=== PATIENT | female | born 1980 | race Caucasian/White ===

== ENCOUNTER 2017-01-29 07:57 | Emergency (ER) | payer MEDICAID ==
[2017-01-29 08:04] VITALS: TEMP 97.9; O2SAT 100
[2017-01-29] MEDS ORDERED: Sodium Chloride 0.9% 1,000 ML IV ONE (08:13)
[2017-01-29] MEDS ORDERED: Iohexol 240 (50 ml) PO STA (08:13)
--- NOTE | 2017-01-29 08:13 | C.PDOC ---
History Of Present Illness 37 year old female with prior history of gallstones presents to the ED with recurring abdominal pain for approximately 2 weeks, pain occasionally radiates towards RUQ and mid back. Patient states the pain is worsening, and current symptoms similar to prior ones "but more intense". Patient denies fever, nausea , vomit, diarrhea, UTI symptoms. RECUR ABD PAIN X 2 WEEKS, WORSENING. HO BILIARY COLIC, CURRENT SX SIM TO PRIOR "BUT MORE INTENSE". WAX WANE LOWER ABD OCC RADIATION RUQ/MID BACK. NO FEVER, NVD. PSH GASTRIC BYPASS 2002. NO UTI SX EXAM MILD DIST NONTOXIC HEENT ANICTERIC MMM ABD +B/L LQ TEND MOD SOFT NO R/G REMAINDER NEG MDM OLD RECS +CHOLELITHIASIS 2016 Time Seen by Provider: 01/29/17 08:06 Chief Complaint (Nursing): Abdominal Pain History Per: Patient History/Exam Limitations: no limitations Onset/Duration Of Symptoms: Waxing/Waning (lower abdomen) Current Symptoms Are (Timing): Still Present Location Of Pain/Discomfort: LLQ Radiation Of Pain To:: Back (Mid) Quality Of Discomfort: Other (waxing and waning) Associated Symptoms: Back Pain (occasional). denies: Fever, Chills, Nausea, Vomiting, Diarrhea, Urinary Symptoms Recent travel outside of the [place]: No Additional History Per: Patient Past Medical History Reviewed: Historical Data, Nursing Documentation, Vital Signs Vital Signs: Last Vital Signs Temp 97.9 F 01/29/17 08:02 Pulse 65 01/29/17 10:14 Resp 16 01/29/17 10:14 BP 131/88 01/29/17 10:14 Pulse Ox 100 01/29/17 11:56 - Medical History PMH: Anemia, Anxiety, Depression, Gall Bladder Disease (STONES), Personality Disorder, Schizophrenia Denies: Diabetes, Hepatitis, HIV, HTN, Chronic Kidney Disease, Seizures, Sexually Transmitted Disease Other Surgeries: Gastric bypass 2002 - [facility] Procedures ALCOHOL DETOXIFICATION (08/03/14) GROUP PSYCHOTHERAPY (05/30/15) INDIVIDUAL PSYCHOTHERAPY, SUPPORTIVE (05/30/15) Family History: States: Unknown Family Hx - Social History Hx Tobacco Use: No Hx Alcohol Use: Yes Hx Substance Use: Yes - Immunization History Hx Tetanus Toxoid Vaccination: No Hx Influenza Vaccination: No Hx Pneumococcal Vaccination: No Review Of Systems Constitutional: Negative for: Fever, Chills Gastrointestinal: Positive for: Abdominal Pain (lower). Negative for: Nausea, Vomiting, Diarrhea Physical Exam - Physical Exam Appears: Non-toxic, In Acute Distress (Mild) Skin: Warm, Dry, Jaundice Head: Atraumatic, Normacephalic Eye(s): bilateral: Normal Inspection Ear(s): Bilateral: Normal Nose: Normal, No Discharge Oral Mucosa: Moist Throat: Normal, No Erythema, No Exudate Neck: Normal, Supple Chest: Symmetrical Cardiovascular: Rhythm Regular Respiratory: Normal Breath Sounds, No Accessory Muscle Use Gastrointestinal/Abdominal: Soft (bilateral moderate lower quadrant), Tenderness (bilateral moderate lower quadrant), No Guarding, No Rebound Back: Normal Inspection Neurological/Psych: Oriented x3, Normal Speech, Normal Cognition ED Course And Treatment - Laboratory Results Result Diagrams: 01/29/17 08:33 01/29/17 08:33 O2 Sat by Pulse Oximetry: 100 (On RA) Pulse Ox Interpretation: Normal - CT Scan/US Abdomen US Other Rad Studies (CT/US): Interpreted By Me, Read By Radiologist, Radiology Report Reviewed CT/US Interpretation: HISTORY: abd pain HO GALLSTONES. COMPARISON: None. TECHNIQUE: Sonographic evaluation of the right upper quadrant of the abdomen. FINDINGS: LIVER: Measures 16.4 cm in length. Normal echogenicity of the liver parenchyma. No mass. No intrahepatic bile duct dilatation. GALLBLADDER: Multiple gallstones are seen without ultrasound evidence of acute cholecystitis. COMMON BILE DUCT: Measures 4 mm. No stones. No dilatation. PANCREAS: Unremarkable as visualized. No mass. No ductal dilatation. RIGHT KIDNEY: Measures 11.4 x 4.5 x 4.7 cm in length. Normal echogenicity. No calculus, mass, or hydronephrosis. AORTA: No aneurysmal dilatation. IVC: Unremarkable. OTHER FINDINGS: None . IMPRESSION: Gallstones without ultrasound evidence of acute cholecystitis CT abdo/Pelvis Other Rad Studies (CT/US): Interpreted By Me, Read By Radiologist, Radiology Report Reviewed CT/US Interpretation: PROCEDURE: CT Abdomen and Pelvis with contrast. HISTORY : abd pain LQ PAIN HO GASTRIC BYPASS. COMPARISON: Comparison is made to the previous same-day ultrasound of the right upper quadrant. TECHNIQUE: Contrast dose: 100 mL Visipaque 320. Radiation dose: Total exam DLP = 929.73 mGy-cm. This CT exam was performed using one or more of the following dose reduction techniques: Automated exposure control, adjustment of the mA and/or kV according to patient size, and/or use of iterative reconstruction technique. FINDINGS: LOWER THORAX: Unremarkable. LIVER: Unremarkable. No gross lesion or ductal dilatation. GALLBLADDER AND BILE DUCTS: Gallstones are noted without evidence of cholecystitis. PANCREAS: Unremarkable. No gross lesion or ductal dilatation. SPLEEN: Unremarkable. ADRENALS: Unremarkable. No mass. KIDNEYS AND URETERS: Unremarkable. No hydronephrosis. No solid mass. VASCULATURE: Unremarkable. No aortic aneurysm. BOWEL: The patient is status post gastric bypass surgery. Mildly dilated small bowel loops and mild wall thickening at the left abdomen may represent mild enteritis. No evidence of high -grade bowel obstruction. APPENDIX: Normal appendix. PERITONEUM: Unremarkable. No free fluid. No free air. LYMPH NODES: Mildly enlarged mesenteric lymph nodes seen at the mid and lower abdomen especially around the mesenteric root likely reactive. BLADDER: Unremarkable. REPRODUCTIVE: The uterus is mildly enlarged contains soft tissue lesion likely represent fibroid. BONES: No acute fracture. OTHER FINDINGS: There is a fat containing 4 centimeter midline ventral hernia just above the level of the umbilicus. IMPRESSION: Gallstones without evidence of acute cholecystitis. Mildly dilated small bowel loops demonstrate mild wall thickening at the left mid and lower abdomen may represent enteritis. No evidence of pancreatitis or appendicitis. 4 centimeter fat containing midline anterior abdominal wall ventral hernia. Progress - Re-Evaluation Re-evaluation Note: 01/29/17 12:19 [address]ARS COM[address] ND. VSS. CT RESULTS DW/ PT. DC W ABX, FU PMD - Data Reviewed Data Reviewed: Lab, Diagnostic imaging, Old records Medical Decision Making Medical Decision Making: Impression : 37 y/o female recurring abdominal pain prior Hx of billiary colic Plan : * Blood work, UA ordered * CT abdo/pelvis with PO and IV contrast, US abdo ordered * Morphine, Omnipaque 50 ml PO, IV fluids, Zofran 8 mg IVP given. Disposition Counseled Patient/Family Regarding: Studies Performed, Diagnosis, Need For Followup, Rx Given - Disposition Referrals: YOUR,PMD [Other] Indra Mcnamara MD [Staff Provider] - Disposition: HOME/ ROUTINE Disposition Time: 12:23 Condition: IMPROVED Prescriptions: Amoxicillin/Clavulanate [Augmentin 875 MG-125 MG] 1 tab PO BID #14 tab Dicyclomine [Bentyl] 20 mg PO TID PRN #12 tab PRN Reason: Pain oxyCODONE/Acetaminophen [Percocet 5/325 mg Tab] 1 ea PO QID #8 tab Instructions: Enteritis (ED), Gallstones (ED) Forms: [facility] (Yemeni) - Clinical Impression Clinical Impression: Enteritis, Biliary colic - Scribe Statement The provider has reviewed the documentation as recorded by the Scriblee Queen All medical record entries made by the Michelleiblee were at my direction and personally dictated by me. I have reviewed the chart and agree that the record accurately reflects my personal performance of the history, physical exam, medical decision making, and the department course for this patient. I have also personally directed, reviewed, and agree with the discharge instructions and disposition.
[2017-01-29] MEDS ORDERED: Iohexol 240 (50 ml) ONE (08:24)
[2017-01-29] MEDS ORDERED: Morphine 4 MG/ML VIAL ONE (08:24)
[2017-01-29] MEDS ORDERED: Sodium Chloride 0.9% 1,000 ML ONE (08:25)
[2017-01-29 08:31] LABS: RBC URINE 3 /hpf (0-3); URINE BILIRUBIN NEGATIVE (NEGATIVE); URINE BLOOD NEGATIVE (NEGATIVE); URINE COLOR Yellow (YELLOW); URINE GLUCOSE (UA) NORMAL (Normal); URINE KETONE NEGATIVE (NEGATIVE); URINE LEUKOCYTE ESTERASE NEG Leu/uL (Negative); URINE PROTEIN NEGATIVE (NEGATIVE); URINE UROBILINOGEN NORMAL mg/dL (0.2-1.0); WBC URINE 3 /hpf (0-5)
[2017-01-29 08:44] LABS: BASO # 0.1 K/uL (0.0-0.2); BASO % 1.4 % (0.0-2.0); CHLORIDE 103 mmol/L (98-107); EOS # 0.2 K/uL (0.0-0.7); EOS % 3.7 % (0.0-4.0); HEMATOCRIT 33.1 % (34.0-47.0); LYMPH # 1.2 K/uL (1.0-4.3); LYMPH % 21.1 % (20.0-40.0); MEAN CELL VOLUME 73.6 fL (81.0-99.0); MEAN CORPUSCULAR HEMOGLOBIN 23.1 pg (27.0-31.0); MEAN CORPUSCULAR HGB CONC 31.4 g/dL (33.0-37.0); MEAN PLATELET VOLUME 10.3 fL (7.2-11.7); MONO # 0.4 K/uL (0.0-0.8); MONO % 7.6 % (0.0-10.0); NRBC % 0.1 % (0.0-2.0); RED CELL DISTRIBUTION WIDTH 19.1 % (11.5-14.5); SODIUM 135 mmol/L (132-148); WHITE BLOOD COUNT 5.7 K/uL (4.8-10.8)
[2017-01-29 08:47] LABS: ALKALINE PHOSPHATASE 72 U/L (38-126); ALT/SGPT 37 U/L (9-52); AST/SGOT 32 U/L (14-36); BLOOD UREA NITROGEN 10 mg/dL (7-17); CARBON DIOXIDE 23 mmol/L (22-30); GFR AFRICAN-AMERICAN > 60; TOTAL PROTEIN 7.7 g/dL (6.3-8.3)
[2017-01-29 08:48] LABS: CALCIUM 8.6 mg/dl (8.6-10.4); GLUCOSE,RANDOM 82 mg/dL (65-105)
[2017-01-29] MEDS ORDERED: Iodixanol 320 MG/ML 100 ML BOTTLE IV ONE (10:08)
[2017-01-29 10:15] VITALS: RESP 16
--- NOTE | 2017-01-29 10:26 | US ---
HISTORY: abd pain HO GALLSTONES COMPARISON: None. TECHNIQUE: Sonographic evaluation of the right upper quadrant of the abdomen. FINDINGS: LIVER: Measures 16.4 cm in length. Normal echogenicity of the liver parenchyma. No mass. No intrahepatic bile duct dilatation. GALLBLADDER: Multiple gallstones are seen without ultrasound evidence of acute cholecystitis COMMON BILE DUCT: Measures 4 mm. No stones. No dilatation. PANCREAS: Unremarkable as visualized. No mass. No ductal dilatation. RIGHT KIDNEY: Measures 11.4 x 4.5 x 4.7 cm in length. Normal echogenicity. No calculus, mass, or hydronephrosis. AORTA: No aneurysmal dilatation. IVC: Unremarkable. OTHER FINDINGS: None . IMPRESSION: Gallstones without ultrasound evidence of acute cholecystitis.
--- NOTE | 2017-01-29 11:49 | CT ---
PROCEDURE: CT Abdomen and Pelvis with contrast HISTORY: abd pain LQ PAIN HO GASTRIC BYPASS COMPARISON: Comparison is made to the previous same-day ultrasound of the right upper quadrant. TECHNIQUE: Contrast dose: 100 mL Visipaque 320 Radiation dose: Total exam DLP = 929.73 mGy-cm. This CT exam was performed using one or more of the following dose reduction techniques: Automated exposure control, adjustment of the mA and/or kV according to patient size, and/or use of iterative reconstruction technique. FINDINGS: LOWER THORAX: Unremarkable. LIVER: Unremarkable. No gross lesion or ductal dilatation. GALLBLADDER AND BILE DUCTS: Gallstones are noted without evidence of cholecystitis. PANCREAS: Unremarkable. No gross lesion or ductal dilatation. SPLEEN: Unremarkable. ADRENALS: Unremarkable. No mass. KIDNEYS AND URETERS: Unremarkable. No hydronephrosis. No solid mass. VASCULATURE: Unremarkable. No aortic aneurysm. BOWEL: The patient is status post gastric bypass surgery. Mildly dilated small bowel loops and mild wall thickening at the left abdomen may represent mild enteritis. No evidence of high-grade bowel obstruction. APPENDIX: Normal appendix. PERITONEUM: Unremarkable. No free fluid. No free air. LYMPH NODES: Mildly enlarged mesenteric lymph nodes seen at the mid and lower abdomen especially around the mesenteric root likely reactive. BLADDER: Unremarkable. REPRODUCTIVE: The uterus is mildly enlarged contains soft tissue lesion likely represent fibroid. BONES: No acute fracture. OTHER FINDINGS: There is a fat containing 4 centimeter midline ventral hernia just above the level of the umbilicus. IMPRESSION: Gallstones without evidence of acute cholecystitis. Mildly dilated small bowel loops demonstrate mild wall thickening at the left mid and lower abdomen may represent enteritis. No evidence of pancreatitis or appendicitis. 4 centimeter fat containing midline anterior abdominal wall ventral hernia.
[2017-01-29 12:38] VITALS: BP 119/81; PULSE 80
== END 2017-01-29 12:39 | disposition home or self-care (01) ==
LOC: C.ER 07:57
DX: K52.9 Noninfective gastroenteritis and colitis, unspecified (principal); K80.50 Calculus of bile duct without cholangitis or cholecystitis without obstruction
CPT/HCPCS: 74177; 76705; 80053; 81001; 83690; 84703; 85025; 96361; 96374; 96375; 99285; J2270; J2405; J7040; Q9966; Q9967

== ENCOUNTER 2017-06-26 08:54 | Emergency (ER) | payer MEDICAID ==
[2017-06-26 09:48] LABS: BASO # 0.1 K/uL (0.0-0.2); BASO % 1.8 % (0.0-2.0); EOS # 0.2 K/uL (0.0-0.7); EOS % 3.7 % (0.0-4.0); HEMOGLOBIN 10.3 g/dL (11.0-16.0); LYMPH # 1.4 K/uL (1.0-4.3); LYMPH % 25.1 % (20.0-40.0); MEAN CORPUSCULAR HEMOGLOBIN 23.6 pg (27.0-31.0); MEAN CORPUSCULAR HGB CONC 32.3 g/dL (33.0-37.0); MEAN PLATELET VOLUME 10.8 fL (7.2-11.7); MONO # 0.5 K/uL (0.0-0.8); MONO % 8.6 % (0.0-10.0); NEUT # 3.3 K/uL (1.8-7.0); NEUT % 60.8 % (50.0-75.0); RBC 4.38 Mil/uL (3.80-5.20); RED CELL DISTRIBUTION WIDTH 18.4 % (11.5-14.5); WHITE BLOOD COUNT 5.5 K/uL (4.8-10.8)
[2017-06-26 09:53] LABS: HCG,QUALITATIVE URINE NEGATIVE (NEGATIVE); SQUAMOUS EPITHIAL 3 /hpf (0-5); URINE BILIRUBIN NEGATIVE (NEGATIVE); URINE BLOOD NEGATIVE (NEGATIVE); URINE CLARITY Hazy (Clear); URINE COLOR Yellow (YELLOW); URINE GLUCOSE (UA) NORMAL (Normal); URINE LEUKOCYTE ESTERASE NEG Leu/uL (Negative); URINE PROTEIN NEGATIVE (NEGATIVE)
[2017-06-26 10:09] LABS: ALB/GLOB RATIO 1.2 (1.0-2.1); ALBUMIN 4.1 g/dL (3.5-5.0); ALT/SGPT 20 U/L (9-52); AST/SGOT 25 U/L (14-36); BLOOD UREA NITROGEN 8 mg/dL (7-17); CALCIUM 8.6 mg/dl (8.6-10.4); GFR AFRICAN-AMERICAN > 60; GFR NON-AFRICAN AMERICAN > 60; LIPASE 172 U/L (23-300)
[2017-06-26 10:19] LABS: BARBITURATES, UR NEGATIVE (NEGATIVE); BENZODIAZEPINES, UR NEGATIVE (NEGATIVE); OPIATES, UR NEGATIVE (NEGATIVE); PHENCYCLIDINE, UR NEGATIVE (NEGATIVE)
--- NOTE | 2017-06-26 10:37 | C.PDOC ---
Time Seen by Provider: 06/26/17 09:20 Chief Complaint (Nursing): Abdominal Pain History Per: Patient Onset/Duration Of Symptoms: Days (months), Waxing/Waning Severity: Moderate Location Of Pain/Discomfort: Periumbilical Quality Of Discomfort: Unable To Describe, "Pain" Associated Symptoms: Constipation (?) Exacerbating Factors: Upright Position Additional History Per: Prior Records Past Medical History Reviewed: Historical Data, Nursing Documentation, Vital Signs Vital Signs: Last Vital Signs Temp 97.7 F 06/26/17 08:58 Pulse 75 06/26/17 08:58 Resp 18 06/26/17 08:58 BP 114/77 06/26/17 08:58 Pulse Ox 99 06/26/17 08:58 - Medical History PMH: Anemia, Anxiety, Depression, Gall Bladder Disease (STONES), Personality Disorder, Schizophrenia Surgical History: Cholecystectomy - [facility] Procedures ALCOHOL DETOXIFICATION (08/03/14) GROUP PSYCHOTHERAPY (05/30/15) INDIVIDUAL PSYCHOTHERAPY, SUPPORTIVE (05/30/15) Family History: States: Unknown Family Hx - Social History Hx Tobacco Use: No Hx Alcohol Use: No Hx Substance Use: No - Immunization History Hx Tetanus Toxoid Vaccination: No Hx Influenza Vaccination: No Hx Pneumococcal Vaccination: No Review Of Systems Except As Marked, All Systems Reviewed And Found Negative. Constitutional: Negative for: Fever, Weakness Cardiovascular: Negative for: Chest Pain Respiratory: Negative for: Shortness of Breath Gastrointestinal: Positive for: Constipation. Negative for: Vomiting, Diarrhea , Melena, Hematochezia, Hematemesis Genitourinary: Negative for: Dysuria, Vaginal Bleeding Musculoskeletal: Negative for: Neck Pain, Back Pain Skin: Negative for: Rash Neurological: Negative for: Weakness, Numbness Physical Exam - Physical Exam Appears: Non-toxic, No Acute Distress Skin: Normal Color, Warm, Dry, No Rash Head: Atraumatic, Normacephalic Eye(s): bilateral: Normal Inspection, PERRL, EOMI Neck: Normal ROM, Supple Cardiovascular: Rhythm Regular Respiratory: Normal Breath Sounds, No Accessory Muscle Use Gastrointestinal/Abdominal: Soft, No Distention, No Guarding, No Rebound, Hernia (umbilical, easily reducible) Back: No CVA Tenderness Extremity: Normal ROM Neurological/Psych: Oriented x3, Normal Motor, Normal Sensation ED Course And Treatment - Laboratory Results Result Diagrams: 06/26/17 09:43 06/26/17 09:43 Lab Interpretation: No Acute Changes Urine POC: Negative O2 Sat by Pulse Oximetry: 99 Pulse Ox Interpretation: Normal Reassessment Condition: Improved Disposition Counseled Patient/Family Regarding: Studies Performed, Diagnosis, Need For Followup, Rx Given - Disposition Referrals: Forest Javier MD [Medical Doctor] - Ronnie Kapadia MD [Staff Provider] - Disposition: HOME/ ROUTINE Disposition Time: 10:37 Condition: IMPROVED Additional Instructions: Follow up with your primary doctor and with a Surgeon for further evaluation and treatment. Return to the ER if you develop fever, vomiting, worsening of symptoms or if you have any other concerns. Prescriptions: Docusate [Colace] 100 mg PO BID PRN #60 cap PRN Reason: Constipation Pantoprazole Sodium [Protonix] 40 mg PO DAILY #14 ect Instructions: Abdominal Wall Hernias - Clinical Impression Clinical Impression: Ventral hernia, Chronic abdominal pain
[2017-06-26 11:09] VITALS: BP 136/76; PULSE 78; RESP 16; TEMP 98; O2SAT 98
== END 2017-06-26 11:09 | disposition home or self-care (01) ==
LOC: C.ER 08:54
DX: K43.9 Ventral hernia without obstruction or gangrene (principal); G89.29 Other chronic pain; R10.9 Unspecified abdominal pain; F20.9 Schizophrenia, unspecified

== ENCOUNTER 2018-01-14 07:55 | Emergency (ER) | payer MEDICAID ==
[2018-01-14 08:18] VITALS: RESP 18; O2SAT 99
--- NOTE | 2018-01-14 08:30 | C.PDOC ---
History Of Present Illness 38 y/o female presents to ED for evaluation of bilateral body sides pain intermittent for the last few days. patient reports, hx of constipation in past, last BM 2-3 days ago. Patient also reports, takes Amoxicillin now given by Dentist for left upper tooth infection " feels like my private area is very dry". Otherwise, denies fever, chills, change in appetite, denies food intolerance, sore throat, CP, SOB, cough, denies abdominal pain, n/v/d, or UTI symptoms. Ambulate to Ed for evaluation, not in any apparent distress. Time Seen by Provider: 01/14/18 08:05 Chief Complaint (Nursing): Abdominal Pain History Per: Patient History/Exam Limitations: no limitations Onset/Duration Of Symptoms: Days Current Symptoms Are (Timing): Still Present Radiation Of Pain To:: Flank Quality Of Discomfort: "Pain" Associated Symptoms: denies: Nausea, Vomiting, Diarrhea, Loss Of Appetite, Constipation, Urinary Symptoms Exacerbating Factors: None Alleviating Factors: None Recent travel outside of the [place]: No Additional History Per: Patient Abnormal Vaginal Bleeding: No Past Medical History Reviewed: Historical Data, Nursing Documentation, Vital Signs Vital Signs: Last Vital Signs Temp 98.3 F 01/14/18 08:04 Pulse 67 01/14/18 08:04 Resp 18 01/14/18 08:04 BP 112/73 01/14/18 08:04 Pulse Ox 99 01/14/18 08:04 - Medical History PMH: Anemia, Anxiety, Depression, Gall Bladder Disease (STONES), Personality Disorder, Schizophrenia Surgical History: Cholecystectomy Other Surgeries: Gastric bypass 2002 - [facility] Procedures ALCOHOL DETOXIFICATION (08/03/14) GROUP PSYCHOTHERAPY (05/30/15) INDIVIDUAL PSYCHOTHERAPY, SUPPORTIVE (05/30/15) Family History: States: Unknown Family Hx - Social History Hx Tobacco Use: No Hx Alcohol Use: No Hx Substance Use: No - Immunization History Hx Tetanus Toxoid Vaccination: No Hx Influenza Vaccination: No Hx Pneumococcal Vaccination: No Review Of Systems Except As Marked, All Systems Reviewed And Found Negative. Constitutional: Negative for: Fever, Chills Cardiovascular: Negative for: Chest Pain, Palpitations Respiratory: Negative for: Cough, Shortness of Breath Gastrointestinal: Negative for: Nausea, Vomiting, Abdominal Pain, Diarrhea Genitourinary: Negative for: Dysuria, Frequency, Incontinence, Hematuria, Pelvic Pain Musculoskeletal: Positive for: Back Pain (bilateral flank) Neurological: Negative for: Weakness, Numbness, Headache Physical Exam - Physical Exam Appears: Well, Non-toxic, No Acute Distress Skin: Normal Color, Warm, Dry, No Rash Eye(s): bilateral: PERRL Nose: No Flaring, No Discharge Oral Mucosa: Moist Throat: No Erythema Neck: Trachea Midline, Supple Cardiovascular: Rhythm Regular Respiratory: No Decreased Breath Sounds, No Accessory Muscle Use, No Stridor, No Wheezing Gastrointestinal/Abdominal: Soft, No Tenderness, No Distention, No Guarding, No Rebound, Hernia (reducable umbilical, no tenderness, no skin changes.) Back: No CVA Tenderness Extremity: Normal ROM, No Deformity, No Swelling Neurological/Psych: Oriented x3, Normal Speech ED Course And Treatment - Laboratory Results Urine POC: Negative O2 Sat by Pulse Oximetry: 99 Pulse Ox Interpretation: Normal - Other Rad obstructive X-Ray: Interpreted by Me, Viewed By Me Interpretation: (-) air-fluid level Progress Note: On re-eval, pt is afebrile, hemodynamiclay stable. non-toxic. Tolerate Po well in ED. ENT: No acute findings. Lungs: CTA B/L, BS equal B/L. CVS: (+)S1S2, reg. Abd: benign, (-) guarding, (-) rebound, (-) localized tenderness. back: (-) CVA tenderness. neurologicaly intact. Obstructive review (-) air-fluid level, (+) gas pattern c/w constipation. UA- normal study. Preg (-). Pt has clinical finidngs c/w B/L body sides pain, constipation, vulvovaginigtis likely relaited to PCN use. Pt advised and ref. to f/u with PMD, GI in 2-3 days for re-eavl. return if any worsening or new changes. Pt understand and agrees with discharges. Disposition Counseled Patient/Family Regarding: Diagnosis, Need For Followup, Rx Given - Disposition Referrals: Forest Javier MD [Medical Doctor] - Disposition: HOME/ ROUTINE Disposition Time: 09:31 Condition: STABLE Additional Instructions: Encourage fluids Diet change take laxative daily follow up with PMD in 2- 3dyas for re-evaluation. Return to ED at any time if any worsening or new changes, Prescriptions: Miconazole 2% Vaginal [Monistat 7 Vaginal Cream] 1 ea VG BID #1 tube Polyethylene Glycol 3350 [Miralax] 17 gm PO DAILY #1 bottle Instructions: Vulvovaginal Yeast Infection, Constipation in Adults Forms: [facility] (French) - Clinical Impression Clinical Impression: Constipation - PA / [employer] CLERK / Resident Statement MD/DO has reviewed & agrees with the documentation as recorded. - Scribe Statement The provider has reviewed the documentation as recorded by the Scribe KP All medical record entries made by the Scribe were at my direction and personally dictated by me. I have reviewed the chart and agree that the record accurately reflects my personal performance of the history, physical exam, medical decision making, and the department course for this patient. I have also personally directed, reviewed, and agree with the discharge instructions and di sposition.
[2018-01-14 09:02] LABS: SQUAMOUS EPITHIAL 2 /hpf (0-5); URINE BILIRUBIN NEGATIVE (NEGATIVE); URINE BLOOD NEGATIVE (NEGATIVE); URINE CLARITY Clear (Clear); URINE COLOR Yellow (YELLOW); URINE GLUCOSE (UA) NORMAL (Normal); URINE LEUKOCYTE ESTERASE NEG Leu/uL (Negative); URINE PROTEIN NEGATIVE (NEGATIVE); URINE UROBILINOGEN NORMAL mg/dL (0.2-1.0)
[2018-01-14 09:49] VITALS: BP 110/78; PULSE 68; TEMP 98.4
--- NOTE | 2018-01-14 15:12 | RAD ---
Date of service: 01/14/2018 PROCEDURE: Radiographs of the chest and abdomen (obstructive series) HISTORY: pain COMPARISON: No prior. TECHNIQUE: AP radiograph of the chest, with upright and supine radiographs of the abdomen. FINDINGS: CHEST: Lungs: Low lung volumes, crowded bronchovascular markings and mild bibasilar atelectasis.. Cardiovascular: Normal size heart. No pulmonary vascular congestion. Pleura: No pleural fluid. No pneumothorax. Other findings: None. ABDOMEN AND PELVIS: Bowel: Unremarkable bowel gas pattern. No evidence of mechanical obstruction. Large amount of stool seen throughout the colon consistent with constipation. Free air: None. Bones: Unremarkable. Other findings: None. IMPRESSION: Low lung volumes with crowded markings and bibasilar atelectasis.. No evidence of mechanical bowel obstruction. Findings consistent with constipation
== END 2018-01-14 09:47 | disposition home or self-care (01) ==
LOC: C.ER 07:55
DX: K59.00 Constipation, unspecified (principal); F20.9 Schizophrenia, unspecified

== ENCOUNTER 2018-02-20 06:10 | Day surgery (SDC) | payer MEDICAID ==
[2018-02-10 11:01] VITALS: BMI 35.2
[2018-02-20] MEDS ORDERED: Lidocaine/Epinephrine 1% 1:100000 10 ML IJ ONE (07:26)
[2018-02-20] MEDS ORDERED: ceFAZolin IV 1 gm in Dextrose 2 GM/100 ML BAG IVPB ONE (07:26)
[2018-02-20] MEDS ORDERED: Bupivacaine 0.25% 20 ML INJ IJ ONE ×2 (07:26→07:47)
[2018-02-20] MEDS ORDERED: Propofol 10 mg/ml Inj (20 ML) ONE (07:27)
[2018-02-20] MEDS ORDERED: Midazolam 2 MG/2 ML VIAL ONE (07:27)
[2018-02-20] MEDS: Bupivacaine 0.25% 20 ML INJ IJ ONE ×2 (08:33→10:38)
[2018-02-20] MEDS ORDERED: Rocuronium 10 mg/ml (5 ml) ONE (09:36)
[2018-02-20] MEDS ORDERED: Morphine 4 MG/ML VIAL ONE (09:45)
[2018-02-20] MEDS ORDERED: Neostigmine Methylsulfate 3mg/3ml Syringe IV ONE (10:37)
[2018-02-20] MEDS ORDERED: Lactated Ringer's 1,000 ML IV ONE (10:54)
[2018-02-20] MEDS ORDERED: Oxycodone/Acetaminophen 5/325 mg Tab PO PRN (10:57)
--- NOTE | 2018-02-20 11:01 | PCM.SURG1 ---
Surgeon's Initial Post Op Note - Surgeon's Notes Surgeon: Dr. Kapadia Food Service Lead: Dr. Cortez PGY3, Estela RN Type of Anesthesia: General Endo Pre-Operative Diagnosis: Incarcerated Umbilical Hernia Operative Findings: See operative dictation Post-Operative Diagnosis: Incarcerated umbilical hernia, incarcerated ventral hernia, incarcerated epigastric hernia Operation Performed: Robotic Umbilical, Ventral and aepigastric hernia repair withg mesh Specimen/Specimens Removed: Hernia Fat Estimated Blood Loss: EBL {In ML}: 5 Blood Products Given: N/A Drains Used: No Drains Post-Op Condition: Good Date of Surgery/Procedure: 02/20/18 Time of Surgery/Procedure: 11:01
[2018-02-20] MEDS: HYDROmorphone 0.5 mg/0.5 ml ISec IVP PRN ×4 (11:02→12:16)
[2018-02-20 13:15] VITALS: RESP 18
[2018-02-20 16:30] VITALS: BP 122/74; PULSE 76; TEMP 97.8; O2SAT 99
--- NOTE | 2018-02-21 07:16 | OP ---
PROCEDURE DATE: 02/20/2018 PREOPERATIVE DIAGNOSES: 1. Incisional umbilical hernia. 2. Morbid obesity. 3. Possible postoperative adhesions due to previous open gastric bypass. POSTOPERATIVE DIAGNOSES: 1. Incisional umbilical hernia. 2. Another incisional hernia in the epigastric region as well as in the upper part of the midline. 3. Diastasis of rectus muscles. 4. Extensive postoperative adhesions of omentum and colon onto the anterior abdominal wall. PROCEDURES: 1. Robotic incarcerated umbilical hernia repair with a mesh. 2. Robotic incisional hernia repair with a mesh. 3. Robotic diastasis recti repair with a mesh. 4. Laparoscopic bilateral TAP block placement. SURGEON: Ronnie Kapadia MD. MAINSPRING BARREL ASSEMBLY CLEANER: PRINCE Carlson. SECOND MAINSPRING BAR[employer] ASSEMBLY CLEANER: Allan Cortez DO. ANESTHESIA: General endotracheal tube anesthesia. ESTIMATED BLOOD LOSS: Around 20 mL. DRAINS: None. PATHOLOGY: Hernial sac and content were sent for the pathology. COMPLICATIONS: None. INTRAOPERATIVE FINDINGS: The patient had extensive postoperative adhesion. The patient also had incarcerated omentum into the umbilical area as well as another incisional hernia in the epigastric area and another incisional hernia on top of the epigastric hernia. The patient had a total of three incisional herniae, and the patient also had a large diastasis of rectus muscle defect. DESCRIPTION OF PROCEDURE: On intraoperative steps this 38-year-old female was diagnosed with incisional umbilical hernia, and the patient was consented for the robotic umbilical incisional hernia repair with the mesh and brought to the OR and placed upon operating table after induction of the anesthesia. The abdomen was prepped and draped in the usual sterile fashion. The right upper quadrant incision was made using the Visiport technique. Peritoneal cavity was entered, pneumo was created, and three 8-mm ports were placed in the left flank, left upper quadrant, left lower quadrant. Robot was brought in. Camera arm 1, arm 2 were docked. The patient had incarcerated omentum in the umbilical area that was reduced, and the dissection was continued upward, and the patient was found to have another large epigastric hernia as well a small hernia in the upper midline. The patient also had a large diastasis recti, approximately 8 x 4 cm in between two hernial defects and now the umbilical incisional hernia defect was closed in two layers with #1 Prolene V-Loc continuous suture in two layers. The epigastric incisional hernia was also closed in two layers with #1 Prolene V-Loc continuous suture, and the large diastasis recti repair was also done with bringing the two edge of the rectus muscles close together, and it was sutured with #1 Prolene V-Loc suture in two layers, and the very top small incisional hernia was also included into the repair of diastasis recti and now the large 20 x 8 cm large mesh was introduced and the mesh was implanted to cover all the defects, and after proper implantation of the mesh, the laparoscopic bilateral TAP block was given. 30 mL of Marcaine was injected bilaterally, and after proper TAP block, all the pneumo was deflated and before giving the TAP block, the robot was undocked, and all the instrument was taken out, and after that, all the port was closed in two layers. The subcu with 2-0 Vicryl, skin with 4-0 Monocryl, and dry sterile dressing was applied. The patient tolerated the procedure well. Count of instrument and gauze was correct. The patient was extubated to OR and sent to the postanesthesia care unit in stable condition. Ronnie Kapadia MD
== END 2018-02-20 16:00 | disposition home or self-care (01) ==
LOC: C.SDS 06:10
PROVIDERS: ATTEND Surgery Surgical Critical Care
DX: K43.2 Incisional hernia without obstruction or gangrene (principal); E66.01 Morbid (severe) obesity due to excess calories; K42.0 Umbilical hernia with obstruction, without gangrene; K43.6 Other and unspecified ventral hernia with obstruction, without gangrene; K66.0 Peritoneal adhesions (postprocedural) (postinfection); Z98.84 Bariatric surgery status; M62.08 Separation of muscle (nontraumatic), other site
CPT/HCPCS: 49653; 49655; 64488; 88302; C1781; J0690; J1100; J1170; J2001; J2250; J2270; J2405; J2704; J2710; J3010; J7120

== ENCOUNTER 2018-03-01 07:59 | Emergency (ER) | payer MEDICAID ==
[2018-03-01 07:59] VITALS: BMI 35.2
[2018-03-01 08:18] VITALS: RESP 18
[2018-03-01 09:36] VITALS: PULSE 78; TEMP 98; O2SAT 98
[2018-03-01 09:41] LABS: BASO # 0.1 K/uL (0.0-0.2); BASO % 0.9 % (0.0-2.0); EOS # 0.5 K/uL (0.0-0.7); EOS % 5.7 % (0.0-4.0); HEMOGLOBIN 10.2 g/dL (11.0-16.0); LYMPH # 1.1 K/uL (1.0-4.3); LYMPH % 13.1 % (20.0-40.0); MEAN CORPUSCULAR HEMOGLOBIN 22.1 pg (27.0-31.0); MEAN CORPUSCULAR HGB CONC 30.7 g/dL (33.0-37.0); MEAN PLATELET VOLUME 9.8 fL (7.2-11.7); MONO # 0.6 K/uL (0.0-0.8); MONO % 7.2 % (0.0-10.0); NEUT # 6.1 K/uL (1.8-7.0); NEUT % 73.1 % (50.0-75.0); RBC 4.61 Mil/uL (3.80-5.20); RED CELL DISTRIBUTION WIDTH 21.1 % (11.5-14.5); WHITE BLOOD COUNT 8.4 K/uL (4.8-10.8)
[2018-03-01 09:45] LABS: MEAN CELL VOLUME 71.8 fL (81.0-99.0)
[2018-03-01 09:59] LABS: SQUAMOUS EPITHIAL 2 /hpf (0-5); URINE BILIRUBIN NEGATIVE (NEGATIVE); URINE BLOOD NEGATIVE (NEGATIVE); URINE CLARITY Clear (Clear); URINE COLOR Yellow (YELLOW); URINE GLUCOSE (UA) NORMAL (Normal); URINE LEUKOCYTE ESTERASE NEG Leu/uL (Negative); URINE PROTEIN NEGATIVE (NEGATIVE); URINE UROBILINOGEN NORMAL mg/dL (0.2-1.0)
--- NOTE | 2018-03-01 10:01 | C.PDOC ---
History Of Present Illness 38 year old female presents to the ED complaining of constipation, abdominal pain, and flatulence status post hernia surgery by Dr. Kapadia last week. Reports oxycodone makes her feel sick and she feels short of breath sometimes. States the surgical binder makes her feel uncomfortable and gassy. Denies fever, chills, nausea, vomiting, diarrhea, chest pain, urinary symptoms. Time Seen by Provider: 03/01/18 08:10 Chief Complaint (Nursing): Abdominal Pain History Per: Patient History/Exam Limitations: no limitations Onset/Duration Of Symptoms: Days Current Symptoms Are (Timing): Still Present Location Of Pain/Discomfort: Diffuse Radiation Of Pain To:: None Associated Symptoms: denies: Fever, Chills, Nausea, Vomiting, Diarrhea Past Medical History Reviewed: Historical Data, Nursing Documentation, Vital Signs Vital Signs: Last Vital Signs Temp 98 F 03/01/18 09:35 Pulse 78 03/01/18 09:35 Resp 18 03/01/18 09:35 BP 116/79 03/01/18 09:35 Pulse Ox 98 03/01/18 09:35 - Medical History PMH: Anemia, Anxiety (no longer), Depression (no lomger), Gall Bladder Disease (STONES), Personality Disorder Denies: HIV, Chronic Kidney Disease, Seizures, Sexually Transmitted Disease Surgical History: Cholecystectomy - [facility] Procedures ALCOHOL DETOXIFICATION (08/03/14) GROUP PSYCHOTHERAPY (05/30/15) INDIVIDUAL PSYCHOTHERAPY, SUPPORTIVE (05/30/15) Family History: States: No Known Family Hx - Social History Hx Tobacco Use: No Hx Alcohol Use: No Hx Substance Use: No - Immunization History Hx Tetanus Toxoid Vaccination: No Hx Influenza Vaccination: No Hx Pneumococcal Vaccination: No Review Of Systems Except As Marked, All Systems Reviewed And Found Negative. Constitutional: Negative for: Fever, Chills Cardiovascular: Negative for: Chest Pain Respiratory: Positive for: Shortness of Breath Gastrointestinal: Positive for: Abdominal Pain, Constipation, Other (flatulence ). Negative for: Nausea, Vomiting, Diarrhea Genitourinary: Negative for: Dysuria, Hematuria Physical Exam - Physical Exam Appears: Non-toxic Skin: Warm, Dry Head: Atraumatic, Normacephalic Eye(s): bilateral: Normal Inspection Nose: Normal Oral Mucosa: Moist Neck: Normal ROM, Supple Chest: Symmetrical Cardiovascular: Rhythm Regular Respiratory: Normal Breath Sounds, No Rales, No Rhonchi, No Wheezing Gastrointestinal/Abdominal: Soft, No Tenderness, Other (steri strips in place, suture site healing well ) Extremity: Normal ROM Neurological/Psych: Oriented x3, Normal Speech Gait: Steady ED Course And Treatment - Laboratory Results Result Diagrams: 03/01/18 09:35 03/01/18 09:35 Lab Interpretation: Normal Urine POC: Negative O2 Sat by Pulse Oximetry: 98 (RA) Pulse Ox Interpretation: Normal Progress Note: Case discussed and patient evaluated by surgical coordinator. Treated with maalox and dulcolax. Patient discharged in stable condition Medical Decision Making Medical Decision Making: Plan - Blood work - XR abd [id number] Spoke with surgical coordinator. Agrees to see patient at bedside. Disposition Counseled Patient/Family Regarding: Studies Performed, Diagnosis, Need For F ollowup - Disposition Referrals: Ronnie Kapadia MD [Staff Provider] - Disposition: HOME/ ROUTINE Disposition Time: 15:00 Condition: IMPROVED Additional Instructions: Follow up with surgery for further evaluation Instructions: Constipation in Adults, Acute Abdomen (Belly Pain), Adult (DC) Forms: [employer] (Indonesian) - POA Present On Arrival: None - Clinical Impression Clinical Impression: Constipation - PA / PERCUSSION WELDING MACHINE OPERATOR / Resident Statement MD/DO has reviewed & agrees with the documentation as recorded. - Scribe Statement The provider has reviewed the documentation as recorded by the Scribe Gale Melendez All medical record entries made by the Scribe were at my direction and personally dictated by me. I have reviewed the chart and agree that the record accurately reflects my personal performance of the history, physical exam, medical decision making, and the department course for this patient. I have also personally directed, reviewed, and agree with the discharge instructions and disposition.
[2018-03-01 10:18] LABS: ALB/GLOB RATIO 1.2 (1.0-2.1); ALBUMIN 3.7 g/dL (3.5-5.0); ALT/SGPT 19 U/L (9-52); AST/SGOT 18 U/L (14-36); BLOOD UREA NITROGEN 7 mg/dL (7-17); GFR NON-AFRICAN AMERICAN > 60
--- NOTE | 2018-03-01 10:45 | RAD ---
Date of service: 03/01/2018 PROCEDURE: Radiographs of the chest and abdomen (obstructive series) HISTORY: Abd Pain COMPARISON: Chest x-ray performed 02/10/18, obstructive series performed 01/14/18 TECHNIQUE: AP radiograph of the chest, with upright and supine radiographs of the abdomen. FINDINGS: CHEST: Heart size appears within normal limits. No atherosclerotic calcification of the aorta present. No focal consolidation, significant pleural effusion, or definite pneumothorax identified. Please note that chest x-ray has limited sensitivity for the detection of pulmonary masses. ABDOMEN AND PELVIS: Nonobstructive bowel gas pattern. No definite free air. Evidence of anastomotic suture material in the left upper quadrant. Pelvic calcifications, likely phleboliths. No acute osseous abnormality is detected. IMPRESSION: No acute findings identified.
[2018-03-01] MEDS ORDERED: Alum-Mag Hydrox-Simethicone Susp (30 mL) PO STA (11:14)
[2018-03-01] MEDS ORDERED: Aluminum Hydroxide/Magnesium Hydroxide Susp (30 mL) ONE (11:29)
[2018-03-01 13:19] VITALS: BP 116/73
== END 2018-03-01 13:19 | disposition home or self-care (01) ==
LOC: C.ER 07:59
DX: K59.00 Constipation, unspecified (principal); D64.9 Anemia, unspecified; K82.9 Disease of gallbladder, unspecified

== ENCOUNTER 2018-08-24 08:58 | Emergency (ER) | payer MEDICAID ==
[2018-08-24 08:58] VITALS: BMI 35.2
[2018-08-24 09:05] VITALS: RESP 18; O2SAT 99
[2018-08-24] MEDS ORDERED: Sodium Chloride 0.9% 1,000 ML IV STA (09:35)
[2018-08-24] MEDS ORDERED: Iohexol 240 (50 ml) PO STA (09:35)
[2018-08-24] MEDS ORDERED: Iohexol 240 (50 ml) ONE (10:00)
[2018-08-24] MEDS ORDERED: Sodium Chloride 0.9% 1,000 ML ONE (10:00)
--- NOTE | 2018-08-24 10:04 | C.PDOC ---
History Of Present Illness Patient is a 38 year old female, with a PMHx of hernia repair in February 2018, who presents to the ED c/o abdominal pain with associated nausea and diarrhea for the past week. Patient states that she lifted something heavy and since then has had the abdominal pain. She denies any fever, chills, CP, SOB. Time Seen by Provider: 08/24/18 09:15 Chief Complaint (Nursing): Abdominal Pain History Per: Patient History/Exam Limitations: no limitations Onset/Duration Of Symptoms: Days (one week) Current Symptoms Are (Timing): Still Present Quality Of Discomfort: "Pain" Associated Symptoms: Nausea, Diarrhea. denies: Fever, Chills, Chest Pain Recent travel outside of the [place]: No Additional History Per: Patient Past Medical History Reviewed: Historical Data, Nursing Documentation, Vital Signs Vital Signs: Last Vital Signs Temp 97.5 F L 08/24/18 09:02 Pulse 72 08/24/18 09:02 Resp 18 08/24/18 09:02 BP 122/86 08/24/18 09:02 Pulse Ox 99 08/24/18 09:02 Primary Care Provider: Forest Javier - Medical History PMH: Anemia, Anxiety (no longer), Depression (no lomger), Gall Bladder Disease (STONES), Personality Disorder Denies: HIV, Chronic Kidney Disease, Seizures, Sexually Transmitted Disease Surgical History: Cholecystectomy - [facility] Procedures ALCOHOL DETOXIFICATION (08/03/14) GROUP PSYCHOTHERAPY (05/30/15) INDIVIDUAL PSYCHOTHERAPY, SUPPORTIVE (05/30/15) Family History: States: Unknown Family Hx - Social History Hx Tobacco Use: No Hx Alcohol Use: No Hx Substance Use: No - Immunization History Hx Tetanus Toxoid Vaccination: No Hx Influenza Vaccination: No Hx Pneumococcal Vaccination: No Review Of Systems Except As Marked, All Systems Reviewed And Found Negative. Constitutional: Negative for: Fever, Chills Cardiovascular: Negative for: Chest Pain Respiratory: Negative for: Shortness of Breath Gastrointestinal: Positive for: Nausea, Abdominal Pain, Diarrhea Physical Exam - Physical Exam Appears: Non-toxic, No Acute Distress Skin: Normal Color, Warm, Dry Head: Atraumatic, Normacephalic Oral Mucosa: Moist Neck: Normal ROM, Supple Chest: Symmetrical, No Deformity Cardiovascular: Rhythm Regular, No Murmur Respiratory: Normal Breath Sounds, No Rales, No Rhonchi, No Wheezing Gastrointestinal/Abdominal: Soft, Tenderness (left more than right ), No Distention, No Rebound Extremity: Normal ROM Neurological/Psych: Oriented x3, Normal Speech ED Course And Treatment - Laboratory Results Result Diagrams: 08/24/18 09:59 08/24/18 09:59 O2 Sat by Pulse Oximetry: 99 (on RA) Pulse Ox Interpretation: Normal - CT Scan/US CT A&P Other Rad Studies (CT/US): Read By Radiologist, Radiology Report Reviewed CT/US Interpretation: PROCEDURE: CT Abdomen and Pelvis with oral and IV contrast. HISTORY: lower abd pain. COMPARISON: CT abdomen and pelvis with contrast performed 01/29/17. TECHNIQUE: Contiguous axial images of the abdomen and pelvis. Oral and IV contrast was administered. Coronal and Sagittal reformats generated and reviewed. Contrast dose: 100 mL Visipaque 320 IV. Radiation dose: Total exam DLP = 1193.16 mGy-cm. This CT exam was performed using one or more of the following dose reduction techniques: Automated exposure control, adjustment of the mA and/or kV according to patient size, and/or use of iterative reconstruction technique. FINDINGS: LOWER THORAX: No visible consolidation, pleural effusion, or pneumothorax. LIVER: Hypoattenuation of the liver compatible with hepatic steatosis. Hepatomegaly. GALLBLADDER AND BILE DUCTS: Not visualized, presumably resected. PANCREAS: Unremarkable. SPLEEN: Unremarkable. ADRENALS: Unremarkable. KIDNEYS AND URETERS: The kidneys enhance symmetrically. No hydronephrosis or obstructing renal calculus. BLADDER: The urinary bladder appears unremarkable. REPRODUCTIVE: Heterogeneous uterus present. Probable 11 mm right ovarian cyst. APPENDIX: The appendix appears within normal limits of caliber. No secondary signs of acute appendicitis. BOWEL: Postsurgical gastric changes. The stomach is nondistended. Small gastroesophageal reflux. Anastomotic suture material involving bowel in the left upper quadrant. The bowel loops appear within normal limits of caliber without evidence of intestinal obstruction. Mild colonic wall thickening involving the right colon; correlate clinically for possibility of colitis. Wall thickening of several small bowel loops may be related to enteritis. PERITONEUM: No significant free fluid. No definite free air. LYMPH NODES: Prominent but sub cm mesenteric adenopathy, nonspecific. VASCULATURE: No aortic aneurysm. No atherosclerotic calcification or mural plaque present. BONES: Bilateral L5 spondylolysis. OTHER FINDINGS: Midline surgical incision/scar with skin thickening evident. IMPRESSION: Hypoattenuation of the liver compatible with hepatic steatosis. Hepatomegaly. Mild colonic wall thickening involving the right colon; correlate clinically for possibility of colitis. Wall thickening of several small bowel loops may be related to enteritis. Heterogeneous appearance of the uterus may be related to fibroids. Probable 11 mm right ovarian cyst. Prominent but nonspecific mesenteric adenopathy. Midline surgical incision/scar with skin thickening evident. Additional findings as above. Progress Note: Plan: CAT A&P. Labs. UA. IV Fluids. Zofran 4mg IVP. On re- evaluation patient feels better, tolerates po and is ambulatory. Patient was treated with cipro and Flagyl po. She is stable to eb d/c home. Patient was given copies of her lab and CT reports. She was instructed to f/u with PMD and OBGYN. Disposition - Disposition Disposition: HOME/ ROUTINE Disposition Time: 14:07 Condition: IMPROVED Additional Instructions: Follow up with your PMD and OBGYN within 2-3 days. Return to ED immediately if feel worse. Prescriptions: Dicyclomine [Bentyl] 20 mg PO TID #30 tab Ciprofloxacin [Cipro] 1 tab PO BID #14 tab metroNIDAZOLE [Flagyl] 500 mg PO Q8 #21 tab Ondansetron ODT [Zofran ODT] 4 mg PO .Q4-6H PRN #20 odt PRN Reason: Nausea/Vomiting Instructions: Colitis, Ovarian Cyst (DC) Forms: [employer] ([place]) - Clinical Impression Clinical Impression: Colitis, Ovarian cyst - PA / FINANCIAL ECONOMIST / Resident Statement MD/DO has examined the patient and agrees with the treatment plan. - Scribe Statement The provider has reviewed the documentation as recorded by the Darwin Mansfield All medical record entries made by the Darwin were at my direction and p ersonally dictated by me. I have reviewed the chart and agree that the record accurately reflects my personal performance of the history, physical exam, medical decision making, and the department course for this patient. I have also personally directed, reviewed, and agree with the discharge instructions and disposition.
[2018-08-24 10:07] LABS: HCG,QUALITATIVE URINE NEGATIVE (NEGATIVE)
[2018-08-24 10:10] LABS: BASO # 0.1 K/uL (0.0-0.2); BASO % 0.9 % (0.0-2.0); EOS # 0.1 K/uL (0.0-0.7); EOS % 1.8 % (0.0-4.0); HEMOGLOBIN 10.3 g/dL (11.0-16.0); LYMPH # 1.2 K/uL (1.0-4.3); LYMPH % 17.2 % (20.0-40.0); MEAN CORPUSCULAR HGB CONC 31.5 g/dL (33.0-37.0); MEAN PLATELET VOLUME 8.9 fL (7.2-11.7); MONO # 0.6 K/uL (0.0-0.8); MONO % 8.3 % (0.0-10.0); NEUT % 71.8 % (50.0-75.0); RBC 4.1 Mil/uL (3.80-5.20); RED CELL DISTRIBUTION WIDTH 17.6 % (11.5-14.5); WHITE BLOOD COUNT 6.9 K/uL (4.8-10.8)
[2018-08-24 10:13] LABS: MEAN CELL VOLUME 79.4 fL (81.0-99.0); SQUAMOUS EPITHIAL 16 /hpf (0-5); URINE BILIRUBIN NEGATIVE (NEGATIVE); URINE BLOOD NEGATIVE (NEGATIVE); URINE CLARITY Hazy (Clear); URINE COLOR Yellow (YELLOW); URINE GLUCOSE (UA) NORMAL (Normal); URINE LEUKOCYTE ESTERASE NEG Leu/uL (Negative); URINE PROTEIN NEGATIVE (NEGATIVE); URINE UROBILINOGEN NORMAL mg/dL (0.2-1.0)
[2018-08-24 10:18] LABS: ALB/GLOB RATIO 1.3 (1.0-2.1); ALBUMIN 3.9 g/dL (3.5-5.0); BLOOD UREA NITROGEN 13 mg/dL (7-17); CALCIUM 8.6 mg/dl (8.6-10.4); GFR NON-AFRICAN AMERICAN > 60; LIPASE 169 U/L (23-300)
[2018-08-24 10:30] LABS: ALT/SGPT 18 U/L (9-52); AST/SGOT 35 U/L (14-36)
[2018-08-24] MEDS ORDERED: Iodixanol 320 MG/ML 100 ML BOTTLE IV ONE ×2 (10:55→12:18)
--- NOTE | 2018-08-24 13:00 | CT ---
PROCEDURE: CT Abdomen and Pelvis with oral and IV contrast. HISTORY: lower abd pain COMPARISON: CT abdomen and pelvis with contrast performed 01/29/17 TECHNIQUE: Contiguous axial images of the abdomen and pelvis. Oral and IV contrast was administered. Coronal and Sagittal reformats generated and reviewed. Contrast dose: 100 mL Visipaque 320 IV Radiation dose: Total exam DLP = 1193.16 mGy-cm. This CT exam was performed using one or more of the following dose reduction techniques: Automated exposure control, adjustment of the mA and/or kV according to patient size, and/or use of iterative reconstruction technique. FINDINGS: LOWER THORAX: No visible consolidation, pleural effusion, or pneumothorax. LIVER: Hypoattenuation of the liver compatible with hepatic steatosis. Hepatomegaly. GALLBLADDER AND BILE DUCTS: Not visualized, presumably resected. PANCREAS: Unremarkable. SPLEEN: Unremarkable. ADRENALS: Unremarkable. KIDNEYS AND URETERS: The kidneys enhance symmetrically. No hydronephrosis or obstructing renal calculus. BLADDER: The urinary bladder appears unremarkable. REPRODUCTIVE: Heterogeneous uterus present. Probable 11 mm right ovarian cyst. APPENDIX: The appendix appears within normal limits of caliber. No secondary signs of acute appendicitis. BOWEL: Postsurgical gastric changes. The stomach is nondistended. Small gastroesophageal reflux. Anastomotic suture material involving bowel in the left upper quadrant. The bowel loops appear within normal limits of caliber without evidence of intestinal obstruction. Mild colonic wall thickening involving the right colon; correlate clinically for possibility of colitis. Wall thickening of several small bowel loops may be related to enteritis. PERITONEUM: No significant free fluid. No definite free air. LYMPH NODES: Prominent but sub cm mesenteric adenopathy, nonspecific. VASCULATURE: No aortic aneurysm. No atherosclerotic calcification or mural plaque present. BONES: Bilateral L5 spondylolysis. OTHER FINDINGS: Midline surgical incision/scar with skin thickening evident. IMPRESSION: Hypoattenuation of the liver compatible with hepatic steatosis. Hepatomegaly. Mild colonic wall thickening involving the right colon; correlate clinically for possibility of colitis. Wall thickening of several small bowel loops may be related to enteritis. Heterogeneous appearance of the uterus may be related to fibroids. Probable 11 mm right ovarian cyst. Prominent but nonspecific mesenteric adenopathy. Midline surgical incision/scar with skin thickening evident. Additional findings as above.
[2018-08-24 14:17] VITALS: BP 120/60; PULSE 73; TEMP 97
== END 2018-08-24 14:14 | disposition home or self-care (01) ==
LOC: C.ER 08:58
DX: K52.9 Noninfective gastroenteritis and colitis, unspecified (principal); N83.209 Unspecified ovarian cyst, unspecified side
CPT/HCPCS: 74177; 80053; 81001; 83690; 84703; 85025; 96361; 96374; 96375; 99285; J1885; J2405; J7030; Q9966; Q9967